=== PATIENT | female | born 1940 | race African-American/Black ===

== ENCOUNTER 2023-02-20 11:00 | Emergency (ER) | payer OTHER ==
[~2023-02-20] VITALS: Ht 149.9 cm; Wt 49.9 kg
[2023-02-20] MEDS ORDERED: NORVASC10 MG PO (11:08)
[2023-02-20] MEDS ORDERED: CHILDREN'S ASPI81 MG PO (11:08)
== END 2023-02-20 15:07 | disposition home or self-care (01) ==
LOC: ER 11:00
DX: S01.82XA Laceration with foreign body of other part of head, initial encounter (principal); W18.39XA Other fall on same level, initial encounter; Y93.89 Activity, other specified; Y92.512 Supermarket, store or market as the place of occurrence of the external cause; Z88.2 Allergy status to sulfonamides; S02.401A Maxillary fracture, unspecified side, initial encounter for closed fracture

== ENCOUNTER 2023-03-03 13:29 | Emergency (ER) | payer OTHER ==
[~2023-03-03] VITALS: Ht 134.6 cm; Wt 44.5 kg
[~2023-03-03 13:29] MED LIST: CHILDREN'S ASPI81 MG PO; NORVASC10 MG PO
== END 2023-03-03 16:43 | disposition home or self-care (01) ==
LOC: ER 13:29
DX: Z48.02 Encounter for removal of sutures (principal); Z88.2 Allergy status to sulfonamides

== ENCOUNTER 2023-03-11 13:06 | Emergency (ER) | payer OTHER ==
[~2023-03-11] VITALS: Ht 160 cm; Wt 44.5 kg
[2023-03-11] MEDS ORDERED: DICLOFENAC SODI75 MG PO (17:53)
== END 2023-03-11 18:11 | disposition home or self-care (01) ==
LOC: ER 13:06
DX: M25.531 Pain in right wrist (principal); Z88.2 Allergy status to sulfonamides; I10 Essential (primary) hypertension; R60.0 Localized edema